=== PATIENT | female | born 1950 | race Caucasian/White ===

== ENCOUNTER → 2016-06-22 | Outpatient (CLI) | payer MEDICARE, OTHER ==
--- NOTE | 2016-06-22 13:38 | REPMRS ---
Patient History The patient states she had a clinical breast exam in Patient is postmenopausal and had first child at age 42. Family history of prostate cancer in father at age 80. Took hormonal contraceptives for 30 years. Took unspecified hormones for 2 years. Digital Woman Screen Mammo: June 22, 2016 - Exam #: [id number] Bilateral CC and MLO view(s) were taken. Technologist: Sonia Nelson, Technologist Prior study comparison: June 18, 2015, digital woman screen mammo performed at [facility]. June 17, 2014, digital woman screen mammo performed at [facility]. FINDINGS: There are scattered fibroglandular densities. There has been no change in the appearance of the mammogram from the prior studies. There is a moderate amount of residual fibroglandular tissue of moderate density which is fairly symmetric. There is no interval development of dominant mass, architectural distortion, or clustered microcalcification suggestive of malignancy. No significant changes when compared with prior studies. ASSESSMENT: BI-RADS/ACR category 1 mammogram. Negative. Recommendation Routine screening mammogram in 1 year (for women over age 40). This mammogram was interpreted with the aid of an FDA-approved computer-aided dectection system. A. Negative x-ray reports should not delay biopsy if a dominant or clinically suspicious mass is present. B. Four to eight percent of cancers are not identified by mammography. C. Adenosis and dense breast may obscure an underlying neoplasm. Electronically Signed By: Dada Lorenzana MD 06/22/16 [id number]
== END ==
LOC: M WHC 12:58
PROVIDERS: ATTEND Internal Medicine
DX: Z12.31 Encounter for screening mammogram for malignant neoplasm of breast (principal); Z78.0 Asymptomatic menopausal state; Z92.0 Personal history of contraception

== ENCOUNTER → 2016-08-26 | Outpatient (CLI) | payer MEDICARE, OTHER ==
[~2016-08-26] VITALS: Ht 160 cm; Wt 69.4 kg
[~2016-08-26] MED LIST: ADVI200T PO; ALBU17IN INH; CALC-190 PO; DULE200A INH; LIDOCAINE 2% INJ 100 MG/5 ML SDV (FOR ANES.) As Ordered ONE; MIRA3350 PO; MOME50SP; MULT1TAB9 PO; NS 1,000 ML IV ONE; PROPOFOL 200 MG/20 ML VIAL As Ordered ONE; SING10TA32 PO
--- NOTE | 2016-08-26 10:28 | ROOR ---
Patient Name: Tiny Vacablock Procedure Date: 08/26/2016 10:05 AM Date of : 1950 Age: 65 Room: [facility] Gender: Female Note Status: Finalized Procedure: Colonoscopy Indications: High risk colon cancer surveillance: Personal history of colonic polyps, Last colonoscopy: March 2013 Providers: Pako MUJICA MD Referring MD: MARIAN VALDEZ NP Requesting Provider: Medicines: Monitored Anesthesia Care Complications: No immediate complications. Procedure: Pre-Anesthesia Assessment: - The heart rate, respiratory rate, oxygen saturations, blood pressure, adequacy of pulmonary ventilation, and response to care were monitored throughout the procedure. The Colonoscope was introduced through the anus and advanced to the cecum, identified by appendiceal orifice and ileocecal valve. The colonoscopy was performed without difficulty. The patient tolerated the procedure well. The quality of the bowel preparation was good. Findings: The perianal and digital rectal examinations were normal. Internal hemorrhoids were found during retroflexion. The hemorrhoids were medium-sized. Multiple medium-mouthed diverticula were found in the sigmoid colon. The colon appeared normal. Impression: - Internal hemorrhoids. - Diverticulosis in the sigmoid colon. - The entire colon is otherwise normal. - No specimens collected. Recommendation: - Repeat colonoscopy in 5 years for surveillance based on personal history of previous adenomatous polyps. Pako Mujica MD Pako MUJICA MD 08/26/2016 10:27:46 AM This report has been signed electronically. Number of Addenda: 0 Note Initiated On: 08/26/2016 10:05 AM Estimated Blood Loss: Estimated blood loss: none.
[2016-08-26 10:45] VITALS: BP 110/60
== END | disposition home or self-care (01) ==
LOC: M OPP 08:41
PROVIDERS: ATTEND Internal Medicine Gastroenterology
DX: Z12.11 Encounter for screening for malignant neoplasm of colon (principal); Z86.010 Personal history of colon polyps; K64.8 Other hemorrhoids; K57.30 Diverticulosis of large intestine without perforation or abscess without bleeding; M19.90 Unspecified osteoarthritis, unspecified site; J45.909 Unspecified asthma, uncomplicated; R06.83 Snoring; Z79.899 Other long term (current) drug therapy
CPT/HCPCS: 99156; 99157; G0105

== ENCOUNTER → 2017-06-22 | Outpatient (CLI) | payer MEDICARE, OTHER | LOC: M WHC 08:31 | DX: Z12.31 Encounter for screening mammogram for malignant neoplasm of breast (principal); Z78.0 Asymptomatic menopausal state; Z92.0 Personal history of contraception; Z92.23 Personal history of estrogen therapy | CPT/HCPCS: 77067 ==

== ENCOUNTER → 2018-08-14 | Outpatient (CLI) | payer MEDICARE, OTHER ==
[~2018-08-14] MED LIST changes: -LIDOCAINE 2% INJ 100 MG/5 ML SDV (FOR ANES.) As Ordered ONE; -NS 1,000 ML IV ONE; -PROPOFOL 200 MG/20 ML VIAL As Ordered ONE
--- NOTE | 2018-08-14 13:54 | REPMRS ---
Patient History The patient states she had a clinical breast exam in 02/15. Patient is postmenopausal and had first child at age 42. Family history of prostate cancer at age 80 in father. Took hormonal contraceptives for 30 years. Taking estrogen for 3 months. Took unspecified hormones for 2 years. Digital Woman Screen Mammo: August 14, 2018 - Exam #: [id number] Bilateral CC and MLO view(s) were taken. Technologist: Toshia Manning, Technologist Prior study comparison: June 22, 2017, digital woman screen mammo performed at [facility]. June 22, 2016, digital woman screen mammo performed at [facility]. June 18, 2015, digital woman screen mammo performed at [facility]. FINDINGS: There are scattered fibroglandular densities. There is a moderate amount of residual fibroglandular tissue which is fairly symmetric. There is no interval development of dominant mass, architectural distortion, or clustered microcalcification typical of malignancy. There has been no change in the appearance of the mammogram from the prior studies. 3-D tomosynthesis shows no additional findings. Assessment: BI-RADS/ACR category 1 mammogram. Negative Mammogram. Recommendation Routine screening mammogram of both breasts in 1 year (for women over age 40). This patient's Lifetime Breast Cancer RIsk is estimated at 9.0 %. This mammogram was interpreted with the aid of an FDA-approved computer-aided dectection system. Electronically Signed By: Andrews Bill MD 08/14/18 [id number]
== END ==
LOC: M WHC 11:08
PROVIDERS: ATTEND Nurse Practitioner Family
DX: Z12.31 Encounter for screening mammogram for malignant neoplasm of breast (principal); Z78.0 Asymptomatic menopausal state; Z92.0 Personal history of contraception; Z79.890 Hormone replacement therapy

== ENCOUNTER → 2019-12-03 | Outpatient (CLI) | payer MEDICARE, OTHER ==
--- NOTE | 2019-12-24 15:27 | REPMRS ---
Patient History The patient states she has not had a clinical breast exam in over a year. Patient is postmenopausal and had first child at age 42. Family history of prostate cancer at age 80 in father. Took hormonal contraceptives for 30 years. Taking estrogen for 3 months. Took unspecified hormones for 2 years. Digital Woman Screen Mammo: December 03, 2019 - Exam #: [id number] Bilateral CC and MLO view(s) were taken. Technologist: Denana Corado, Technologist Prior study comparison: August 14, 2018, bilateral digital woman screen mammo performed at [facility]. June 22, 2017, digital woman screen mammo performed at [facility]. June 22, 2016, digital woman screen mammo performed at [facility]. FINDINGS: There are scattered fibroglandular densities. The Volpara volumetric breast density category is:B. There has been no change in the appearance of the mammogram from the prior studies. There is a mild amount of scattered fibroglandular density which is fairly symmetric. There is no interval development of dominant mass, architectural distortion, or grouped microcalcification suggestive of malignancy. 3-D tomosynthesis shows no additional findings. Assessment: BI-RADS/ACR category 1 mammogram. Negative Mammogram. Recommendation Routine screening mammogram of both breasts in 1 year (for women over age 40). This patient's Lifetime Breast Cancer Risk is estimated at 8.5 %. This mammogram was interpreted with the aid of an FDA-approved computer-aided dectection system. Electronically Signed By: Andrews Bill MD 12/24/19 8421
== END ==
LOC: M WHC 16:24
PROVIDERS: ATTEND Internal Medicine
DX: Z12.31 Encounter for screening mammogram for malignant neoplasm of breast (principal)

== ENCOUNTER → 2020-09-02 | Outpatient (CLI) | payer MEDICARE, OTHER ==
--- NOTE | 2020-09-02 16:04 | REP ---
INDICATION: CERVICALGIA. COMPARISON: None. TECHNIQUE: Sagittal and axial T1 and T2-weighted scans are acquired in the usual fashion with and without fat saturation. Sequences include spin echo, turbo spin-echo, and STIR imaging sequences. FINDINGS: There is straightening of the normal cervical lordosis. Vertebral body heights are preserved. Alignment is normal. There are sclerotic marrow changes on either side of the degenerated C3-4 disc. There is degenerative disc disease with disc space narrowing and decreased disc space signal intensity at C4-5 C5-6 and C6-7 as well. Screening cervical junction is unremarkable. The cervical cord is normal in course, caliber, and signal intensity on T1 and T2 weighted scans. Axial and sagittal images taken at C2-3 level show no evidence of disc protrusion or foraminal narrowing. At C3-4, there is diffuse posterior disc bulging and osteophytic ridging which indents the ventral margin of the thecal sac and contacts the ventral margin of the cord. There is uncovertebral spurring producing foraminal narrowing mild in degree bilaterally. Canal size is borderline. Midline AP dimension of the thecal sac at C3-4 is 9 mm. At C4-C5, there is mild diffuse disc bulging and posterior osteophytic ridging. Mild bilateral uncovertebral spurring is seen left greater than right. Left-sided neural foraminal narrowing is seen at C4-5. Canal size is borderline. Midline AP dimension of the thecal sac at C4-5 is 7.7 mm. At C5-C6 there is similar changes with diffuse disc bulging effacing the ventral subarachnoid space. Mild bilateral uncovertebral spurring is present. Canal size is borderline. Midline AP dimension of the thecal sac at C5-6 is 8 mm. At C6-7, there is minimal disc bulging and posterior osteophytic ridging. Neural foramina appear adequate. No central canal stenosis is seen. The C7-T1 level shows a 3 mm degenerative spondylolisthesis of C7 anterior with respect to T1. There is diffuse disc bulging. There is minimal foraminal narrowing right greater than left at C7-T1. IMPRESSION: Degenerative spondylosis changes. Borderline canal size at each level from C3-4 through C5-6. Multilevel neural foraminal narrowing as above. <Electronically signed by Andrews Bill > 09/02/20 [id number]
== END ==
LOC: M PLARAD 14:38
PROVIDERS: ATTEND Physician Assistant Surgical
DX: M54.2 Cervicalgia (principal)

== ENCOUNTER → 2021-01-06 | Outpatient (CLI) | payer MEDICARE, OTHER ==
--- NOTE | 2021-01-06 12:08 | REPMRS ---
Patient History The patient states she has not had a clinical breast exam in over a year. Patient is postmenopausal and had first child at age 42. Family history of prostate cancer at age 80 in father. Took hormonal contraceptives for 30 years. Taking estrogen for 2 years. Took unspecified hormones for 2 years. No breast complaints today Patient signed the MRS sheet 1st covid vaccine 05/30/20-left arm-Pfizer 2nd covid vaccine 06/20/20-left arm Patient states she has lost at least 10lbs in the last year, unintentionally Priors on PACS Patient Identification Verified Digital Woman Screen Mammo: January 06, 2021 - Exam #: [id number] Bilateral CC and MLO view(s) were taken. Technologist: Deanna Corado, Technologist Prior study comparison: December 03, 2019, bilateral digital woman screen mammo performed at [facility]. August 14, 2018, bilateral digital woman screen mammo performed at [facility]. FINDINGS: There are scattered fibroglandular densities. Screening. Digital screening (2D) mammography was performed bilaterally in the CC and MLO projections. Additionally, breast tomosynthesis (3D mammography) was performed bilaterally in the CC and MLO projections. Todays exam was compared to the prior exam/exams. By history, the patient has no complaints of a palpable breast abnormality or other significant breast complaints. The breasts are unchanged in size and shape. There are no simon-soft tissue densities or spiculated masses. There is no internal architectural distortion. There are no suspicious simon-calcific clusters. Skin thickening or nipple retraction is not present. IMPRESSION: BI-RADS Category 2- Benign Findings. There is no evidence of malignant alteration of the breasts. Followup examination recommended in one year. The Volpara volumetric breast density category is B, there are scattered areas of fibroglandular densities. This mammogram was read with the assistance of [employer],an FDA approved computer aided detection system for mammography. The lifetime Tyrer-Cuzick score is 7.5 % Negative x-ray reports should not delay surgical consultation if a dominant or clinically suspicious mass is present. Not all breast cancers can be identified by mammography. Therefore, we recommend that you continue to perform regular breast self-examination and physical examination and then promptly contact your physician of any concerns or changes. Adenosis and dense breasts may obscure an underlying neoplasm. Assessment: BI-RADS/ACR category 2 mammogram. Benign Findings. Recommendation Routine screening mammogram of both breasts in 1 year. Electronically Signed By: Maximiliano Pressley DO 01/06/21 [id number]
== END ==
LOC: M WHC 09:52
PROVIDERS: ATTEND Internal Medicine
DX: Z12.31 Encounter for screening mammogram for malignant neoplasm of breast (principal)

== ENCOUNTER → 2021-04-02 | Outpatient (CLI) | payer MEDICARE, OTHER ==
--- NOTE | 2021-04-02 14:20 | REP ---
INDICATION: WHEEZING. COMPARISON: 04/13/2009 TECHNIQUE: PA and lateral FINDINGS: The cardiomediastinal silhouette is unchanged. The heart is not enlarged. The pleural angles are sharp. Discoid opacity has developed in the left lower lobe since the last exam. This is seen on both AP and lateral views. There is no change in the osseous structures. IMPRESSION: New left lung field opacity. Contrast-enhanced CT examination the chest is recommended <Electronically signed by Maximiliano Pressley > 04/02/21 [id number]
== END ==
LOC: M WUC 11:51
PROVIDERS: ATTEND Registered Nurse
DX: R91.8 Other nonspecific abnormal finding of lung field (principal); R06.2 Wheezing

== ENCOUNTER → 2021-04-15 | Outpatient (CLI) | payer MEDICARE, OTHER ==
[~2021-04-15] MED LIST changes: +ISOVUE-370 76% 100ML VIAL As Ordered ONE
--- NOTE | 2021-04-15 15:24 | REP ---
INDICATION: LT LUNG ABN CXR COMPARISON: None TECHNIQUE: Axial contrast enhanced images from the thoracic inlet to the upper abdomen with coronal and sagittal reformations using 75 ml Isovue 370 intravenous contrast material. This CT examination was performed using the following dose reduction techniques: Automated exposure control, adjustment of mA and/or kv according to the patient's size, and use of iterative reconstruction technique. FINDINGS: Abnormality in the left lung corresponds to linear platelike fibroatelectatic changes involving the lingula. Mild chronic fibro atelectatic changes are also identified within the right middle lobe and right base. Underlying moderate emphysematous changes are noted. There is a small subpleural/perifissural scar along the posterior aspect of the right upper lobe at the origin of the right major fissure (image 29). No further acute consolidation, suspicious nodule or mass. No effusion. No pneumothorax. Tracheobronchial tree is patent. Mediastinum demonstrates relatively normal thoracic aorta and heart/pericardium. Thyroid gland is normal by contrast-enhanced CT evaluation. No axillary, hilar, or mediastinal adenopathy. Surrounding musculoskeletal structures demonstrate age-related changes without acute osseous abnormality. Limited upper abdomen demonstrates normal bilateral adrenal glands. IMPRESSION: 1. Relatively new abnormal findings in the left lung correspond to linear platelike fibroatelectatic changes likely representing progressive chronic change. 2. Further chronic changes and evidence for emphysematous disease as described above. <Electronically signed by Tanner Acevedo > 04/15/21 [id number]
== END ==
LOC: M RAD 13:09
PROVIDERS: ATTEND Registered Nurse
DX: R91.8 Other nonspecific abnormal finding of lung field (principal)
CPT/HCPCS: 71260; Q9967

== ENCOUNTER → 2021-10-03 | Outpatient (CLI) | payer MEDICARE, OTHER ==
[~2021-10-03] MED LIST changes: +CALC-175 PO; +ICAPTAB PO; -ISOVUE-370 76% 100ML VIAL As Ordered ONE; +MELA5TAB7 PO; +MELO15TA28 PO; -MOME50SP; +MOME50SP2; +NASO50SP3; +OXYB5TAB10 PO; +VAGI10TA VA; +VENTAER INH; +VITMTA PO
== END ==
LOC: M LABSMTC 11:09
PROVIDERS: ATTEND Anesthesiology
DX: Z01.812 Encounter for preprocedural laboratory examination (principal); Z20.822 Contact with and (suspected) exposure to COVID-19

== ENCOUNTER 2021-10-07 10:23 | Day surgery (SDC) | payer MEDICARE, OTHER ==
[~2021-10-07] VITALS: Ht 160 cm; Wt 64.0 kg
[~2021-10-07 10:23] MED LIST changes: +NS 1,000 ML IV ONE
[2021-10-07] MEDS ORDERED: propofoL 200 MG/20 ML VIAL As Ordered ONE ×2 (12:05→12:09)
[2021-10-07 12:45] VITALS: BP 135/72
== END 2021-10-07 13:04 | disposition home or self-care (01) ==
LOC: M OPP 10:23
PROVIDERS: ATTEND Internal Medicine Gastroenterology
DX: Z12.11 Encounter for screening for malignant neoplasm of colon (principal); Z86.010 Personal history of colon polyps; K57.30 Diverticulosis of large intestine without perforation or abscess without bleeding; Z79.1 Long term (current) use of non-steroidal anti-inflammatories (NSAID); Z79.51 Long term (current) use of inhaled steroids; Z79.52 Long term (current) use of systemic steroids; Z79.899 Other long term (current) drug therapy; Z80.42 Family history of malignant neoplasm of prostate; Z80.6 Family history of leukemia